=== PATIENT | female | born 1960 | race Caucasian/White ===

== ENCOUNTER 2016-08-07 18:35 | Inpatient (IN) | payer OTHER ==
[~2016-08-07] VITALS: Ht 152.4 cm; Wt 71.0 kg
[~2016-08-07 18:35] MED LIST: OLME1TAB25 PO
[2016-08-07 20:00] VITALS: BP 155/75; PULSE 76; RESP 20
[2016-08-07 20:18] VITALS: Ht 152.4 cm; Wt 71.0 kg
[2016-08-07] MEDS ORDERED: TAMS0.4C2 PO (20:58)
[2016-08-07] MEDS ORDERED: LEVO25TA53 PO (20:58)
[2016-08-07] MEDS ORDERED: PROG100C5 PO (20:58)
[2016-08-07] MEDS ORDERED: ESTRIOL PO (20:58)
[2016-08-07] MEDS ORDERED: LOSA50TA6 PO (20:58)
[2016-08-07] MEDS ORDERED: HYDR-3025 PO (20:58)
[2016-08-07] MEDS ORDERED: HYDROmorphONE 1 MG/ML SYG IV PRN (21:30)
[2016-08-07] MEDS ORDERED: DEXTROSE 5%-0.45% NACL 1,000 ML IV SCH (21:30)
[2016-08-07] MEDS ORDERED: BISACODYL (EC) 5 MG TAB PO PRN (21:30)
[2016-08-07 21:40] LABS: BASOPHILS % 0.5 % (0.0-2.0); EOSINOPHILS # 0.2 10^3/ul (0.0-0.5); HEMATOCRIT 39.6 % (37.0-47.0); HEMOGLOBIN 13.3 g/dl (12.0-16.0); LYMPHOCYTES # 2.5 10^3/ul (0.8-2.9); LYMPHOCYTES % 31.7 % (15.0-51.0); MEAN CORPUSCULAR HEMOGLOBIN 28.9 pg (29.0-33.0); MEAN CORPUSCULAR HGB CONC 33.7 g/dl (32.0-37.0); MEAN PLATELET VOLUME 8.2 fl (7.4-10.4); MONOCYTE # 0.5 10^3/ul (0.3-0.9); MONOCYTES % 5.8 % (0.0-11.0); NEUTROPHIL # 4.8 10^3/ul (1.6-7.5); PLATELET COUNT 265 10^3/UL (140-440); RED CELL DISTRIBUTION WIDTH 13.3 % (11.5-14.5)
[2016-08-07 21:42] LABS: CONDITION 1
[2016-08-07 21:44] LABS: POTASSIUM 4.6 mmol/L (3.5-5.1)
[2016-08-07 21:46] LABS: INR 0.88; PARTIAL THROMBOPLASTIN TIME 27.8 Sec (25.0-35.0); PROTIME 11.9 Sec (12.2-14.2); PT RATIO 0.9
[2016-08-07 21:47] LABS: CREATININE 0.73 mg/dl (0.44-1.00)
[2016-08-07 21:48] LABS: CALCIUM 9.1 mg/dl (8.4-10.2)
[2016-08-07] MEDS: DEXTROSE 5%-0.9% NACL 1,000 ML IV SCH (22:33)
[2016-08-07 23:20] VITALS: BP 145/68; PULSE 75; RESP 16
--- NOTE | 2016-08-07 23:28 | RADRPT ---
PROCEDURE: XR Chest. CLINICAL INDICATION: Preoperative. TECHNIQUE: Single frontal view. COMPARISON: None. FINDINGS: The lungs are clear. The heart size is normal. There is no pleural effusion. There is no pneumothorax. IMPRESSION: 1. Normal chest radiograph. RPTAT: QQ .Karthikeyan Dominguez MD, Date Time Electronically viewed and signed by .Karthikeyan Dominguez MD, on 08/07/2016 23:28 .R/
--- NOTE | 2016-08-07 23:29 | RADRPT ---
PROCEDURE: XR Abdomen. CLINICAL INDICATION: Abdomen pain. Renal calculus. TECHNIQUE: AP supine abdomen x-ray. COMPARISON: None. FINDINGS: The bowel gas pattern is normal with no evidence of obstruction. Surgical clips are present in the right upper quadrant of the abdomen. There are no abnormal calcifications overlying the urinary tracts. There are degenerative changes of the spine. IMPRESSION: 1. Prior right upper quadrant abdomen surgery. 2. Degenerative changes of the spine. 3. Otherwise unremarkable study. RPTAT: QQ .Karthikeyan Dominguez MD, MD Date Time Electronically viewed and signed by .Karthikeyan Dominguez MD, MD on 08/07/2016 23:29 .R/
[2016-08-08] VITALS (14 sets, daily range): BP systolic 111–156; BP diastolic 59–81; PULSE 62–88; RESP 10–20
--- NOTE | 2016-08-08 05:28 | HP ---
DATE OF ADMISSION: 08/07/2016 CHIEF COMPLAINT: Right flank pain with painful hematuria, nausea, and vomiting. HISTORY OF PRESENT ILLNESS: This is a 56-year-old female whom I saw on 07/28/2016, referred to me Alexia De Leon complaining off 3 days history of right flank pain associated with nausea, vomiting, and painful hematuria. Since then, she has been having the pain on and off. She did have an ultra sound by Dr. De Leon, and that showed right renal stone with right hydronephrosis. The patient denies a ny prior history of kidney stones. She does have a history of nocturia 2 to 3 times. During the da y, she voids every 4 to 5 hours. There is no history of dysuria. She did not have any constant urg e to urinate, and she does feel dizzy sometimes. The patient then underwent a KUB which showed a qu estion of a stone in the right ureter about 5 mm in size. The patient was given Flomax, pain medica tion, and was hope to be able to pass the stone; however, since that time, the patient has not been able to pass the stone, and she continued to have pain on and off. PAST MEDICAL HISTORY AND PAST SURGICAL HISTORY: The patient is a 1, para 1. She had 1 C-s ection. 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 She also has had a history of cholecystectomy, lapa roscopic 2 years ago. There is no history of other operations. Also, she does have a history of hy pertension and has been taking medication for it. She denies any heart or lung disease. No history of tuberculosis. No gastrointestinal diseases. ALLERGIES: NO KNOWN DRUG ALLERGIES. SOCIAL HISTORY: She does not smoke, does not drink any alcohol except occasionally and very small a mount. FAMILY HISTORY: Her mother of cancer of the stomach at age 55. Her father of heart attac k at age 65. PHYSICAL EXAMINATION: GENERAL: Revealed a well-developed female. She weighs about 71 kilograms. She is 60 inches tall. VITAL SIGNS: Her temperature is 98.1, pulse is 76, respiration 20, blood pressure 155/75. HEAD AND NECK: Unremarkable. HEART: Regular. LUNGS: Clear. ABDOMEN: She does have right flank tenderness and scar in the abdomen from prior surgery. EXTREMITIES: Reveal no edema, no varicose veins. LABORATORY DATA: Pending. IMPRESSION: Right renal stone and right ureteral stone. PLAN: To do a KUB and also strain her urine and also start her on IV, put her on pain medications, and we had scheduled her for 7:30 in the morning to undergo a cystoscopy, right ureteroscopy, laser lithotripsy, and insertion of a JJ stent. I have explained all these to her, and at the time of the visit, when she came in and saw me in the office, when she was with her as well, and I expl ained to both of them all the possibilities of the treatment. They understood, and from 07/28/2016 up to now, she has been having pain on and off. Finally she came into the hospital to have the ston e removed, and she is agreeable to have the procedure. Dictated By: MALIK WEBB/WILFREDO Conf#: [id number] DID#: [id number]
[2016-08-08] MEDS: PANTOPRAZOLE 40 MG INJ IV SCH (05:49)
[2016-08-08] MEDS ORDERED: EPHEDrine SULFATE 50 MG/5 ML SYG ONE (07:00)
[2016-08-08] MEDS ORDERED: PROPOFOL 20 ML ONE (07:35)
[2016-08-08] MEDS ORDERED: ROCURONIUM 50 MG INJ ONE (07:35)
[2016-08-08] MEDS ORDERED: MIDAZOLAM 1 MG/ML 2 ML INJ ONE (07:36)
[2016-08-08] MEDS ORDERED: FENTAnyl 50 MCG/ML VIAL ONE (07:36)
[2016-08-08] MEDS ORDERED: CEFAZOLIN 1 GM INJ ONE (07:48)
[2016-08-08] MEDS ORDERED: PHENYLephrine (100 MCG/ML) 5ML SYG ONE ×2 (07:51→08:21)
[2016-08-08] MEDS ORDERED: ONDANSETRON 4 MG INJ ONE (07:53)
[2016-08-08] MEDS ORDERED: DEXAMETHASONE 4 MG/ML 1 ML INJ ONE (07:53)
[2016-08-08] MEDS ORDERED: GLYCOPYRROLATE 0.4 MG INJ ONE (08:58)
[2016-08-08] MEDS ORDERED: NEOSTIGMINE 3 MG/3 ML SYRINGE ONE (08:58)
[2016-08-08] MEDS: ONDANSETRON 4 MG INJ IV PRN ×2 (09:27→14:52)
[2016-08-08] MEDS ORDERED: HYDROCODONE/APAP (5/325) TAB PO PRN (09:30)
[2016-08-08] MEDS ORDERED: hydrALAzine 20 MG INJ IV PRN (09:30)
[2016-08-08] MEDS ORDERED: HYDROmorphONE (0.2 MG/ML) 10ML SYG IV PRN ×2 (09:30)
[2016-08-08] MEDS ORDERED: MEPERIDINE 25 MG INJ IV PRN (09:30)
[2016-08-08] MEDS: DEXTROSE 5%-0.9% NACL 1,000 ML IV SCH ×2 (11:48→22:01)
--- NOTE | 2016-08-08 12:22 | RADRPT ---
PROCEDURE: XR Chest 1 View. CLINICAL INDICATION: Abnormal breath sounds, preop. TECHNIQUE: AP view of the chest were obtained. COMPARISON: August 07, 2016 FINDINGS: The cardiomediastinal silhouette is within normal limits. Lungs are hypoinflated. Linear atelectasi s is identified in the lingula. No consolidations are identified. No pneumothorax is seen. Osseous structures are intact. IMPRESSION: Hypoinflated lungs. Linear atelectasis in the lingula. RPTAT: AA .Chad Carpenter MD, MD Date Time Electronically viewed and signed by .Chad Carpenter MD, on 08/08/2016 12:21 .P/
--- NOTE | 2016-08-08 12:22 | RADRPT ---
PROCEDURE: X-ray fluoroscopy guidance CLINICAL INDICATION: Flank pain, cystoscopy and right ureteral stent placement. Fluoroscopic tobin morgan. TECHNIQUE: Fluoroscopic guidance was utilized for an intraoperative procedure. COMPARISON: None available FINDINGS: Fluoroscopic guidance was utilized for and intraoperative procedure. 80 seconds of fluoroscopy time was utilized for the procedure. 21 x-ray images were obtained during the procedure in progress. IMPRESSION: X-ray fluoroscopic guidance utilized for intraoperative procedure. Please see procedure note for details. RPTAT: AA .Chad Carpenter MD, MD Date Time Electronically viewed and signed by .Chad Carpenter MD, MD on 08/08/2016 12:21 .P/
--- NOTE | 2016-08-08 12:28 | OPR ---
DATE OF OPERATION: 08/08/2016 PREOPERATIVE DIAGNOSIS: Right ureteral stone with hydronephrosis. POSTOPERATIVE DIAGNOSIS: Right ureteral stone with hydronephrosis. PROCEDURE PERFORMED: Cystoscopy, right ureteroscopy, laser lithotripsy and insertion of right urete ral JJ stent. TECHNIQUE: The patient was brought to the operating room. Time out was done. The patient was iden tified by her name, date, the procedure and the side of the procedure. The patient was then g iven general endotracheal anesthesia, positioned in the lithotomy position. The genital area was pr epped and draped in the usual sterile manner. A #21 Ethiopian cystoscope sheath was introduced into th e bladder, and the bladder was inspected. 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 The right ureteral orifice was identified and then cannulated with a 5-Ethiopian open-ended urete ral catheter, and then a Glidewire was passed through the right ureteral orifice all the way up to t he kidney under fluoroscopy. Then, I did remove the open-ended and reintroduced it through the seco nd working channel and then passed a second Glidewire all the way up to the kidney as well. Then, t he scope was removed, and the two Glidewires were kept in place. One Glidewire was used as a safety wire. The other wire was used to advance the ureteroscope, the long rigid ureteroscope, on it. The ureter was very tight, and it looks like it was affected also by the radiation that she had to her p [place] 20 years ago; however, I was able to advance the scope up to the level of the stone, and there I did visualize the stone and used the holmium laser to break it. The 200 micron laser fiber was us ed. The stone was broken into pieces, and I basketed them. I had to use the laser more than once t o break the stone further, and once I cleared the ureter from all the stones, I was able to advance my scope all the way up to the proximal part of the ureter and the whole ureter was free of stones. At that moment, the ureteroscope was removed, and the cystoscope was reintroduced, and on the safet y wire, I inserted a 6-Ethiopian x 22 cm long JJ stent, had its proximal end curling into the kidney an d the distal end curling into the bladder. The distal end was attached to a string that was taped t o her right groin, so the patient would come into the office in about 4 days or 5 days to have the s tent removed without needing to undergo a cystoscopy. The patient tolerated the procedure well and was transferred to recovery room in stable and satisfactory condition. Dictated By: MALIK WEBB/WILFREDO Conf#: [id number] DID#: [id number]
--- NOTE | 2016-08-08 13:32 | PDOCDIS ---
Discharge Instructions CONDITION Patient Condition: Good HOME CARE INSTRUCTIONS: Special Diet: NPO ACTIVITY: Activity Restrictions: Slowly Increase Activity FOLLOW UP/APPOINTMENTS Appointments f/u song and dr cyr 1 wk JULIETA MARTINEZ MD Aug 08, 2016 13:32
[2016-08-08] MEDS ORDERED: HYDR-3498 PO (13:33)
--- NOTE | 2016-08-08 14:45 | QN ---
Documentation Comment hp done JULIETA MARTINEZ MD Aug 08, 2016 14:45
[2016-08-08] MEDS: ACETAMINOPHEN 325 MG TAB PO PRN ×2 (14:47→22:01)
--- NOTE | 2016-08-08 16:18 | HP ---
DATE OF ADMISSION: 08/07/2016 HISTORY OF PRESENT ILLNESS: The patient is a 56-year-old female who has a history of kidney stone, was seen by Dr. Amy De Leon, stented, but patient still has a kidney stone. Patient now presents to [facility] with flank pain. Denies any hematuria and underwent removal of kidney stone by Dr. Aston montalvo. Patient was seen postop. Patient denies any nausea, vomiting at this point. PAST MEDICAL HISTORY: Positive for hypertension and hypothyroidism. ALLERGY HISTORY: NEGATIVE. FAMILY HISTORY: Negative. SOCIAL HISTORY: Negative. MEDICATION HISTORY: At home: 1. Vicodin. 2. Levothyroxine. 3. Losartan. 4. Progesterone. 5. Flomax. REVIEW OF SYSTEMS: HEENT: Unremarkable. RESPIRATORY: Unremarkable. CARDIOVASCULAR: Unremarkable. ABDOMEN: Unremarkable. EXTREMITIES: Unremarkable. GENITOURINARY: Unremarkable. MUSCULOSKELETAL: As mentioned above. No hematuria, dysuria, flank pain positive. ABDOMEN: Unremarkable. PHYSICAL EXAMINATION: GENERAL: The patient is awake, alert. VITAL SIGNS: Stable. HEAD: Atraumatic, normocephalic. Pupils equal, reactive to light. NECK: Supple. No JVD. LUNGS: Clear. CARDIOVASCULAR: S1, S2 normal. ABDOMEN: Soft, nontender. Bowel sounds present. No palpable mass or hepatosplenomegaly. No guard ing, rebound tenderness. EXTREMITIES: There is no cyanosis, clubbing, or edema. CENTRAL NERVOUS SYSTEM: The patient is awake, alert, no focal deficit. LABORATORY DATA: Hematocrit 39.6. The patient has a x-ray shows prior right upper quadrant abdomi nal surgery, DJD of the spine. Cystogram was done. IMPRESSION: 1. Right renal stone. 2. The patient had a stone removal by Dr. Whipple. 3. Hypertension. 4. History of hypothyroidism. PLAN: To continue current treatment. Follow recommendations from Dr. Whipple. The patient is muriel g to be discharged in stable condition. Dictated By: JULIETA MARTINEZ MD BS/NTS Conf#: [id number] DID#: [id number]
[2016-08-09] MEDS: PANTOPRAZOLE 40 MG INJ IV SCH (06:25)
[2016-08-09 07:50] VITALS: BP 135/69; RESP 20
--- NOTE | 2016-08-09 09:25 | RADRPT ---
Vent Rate: 67 bpm RR Interval: 0 msec MS Interval: 166 msec QRS Duration: 90 msec QT Interval: 408 msec QTC Interval: 431 msec P-R-T [place]: 17 - 19 - 20 degrees Normal sinus rhythm Normal ECG Electronically Signed By: Chinedu Faria [id number]
--- NOTE | 2016-08-09 12:23 | PN ---
DATE: 08/09/2016 SUBJECTIVE: Nausea, headache and flank pain. The patient underwent a right ureteroscopy, laser lit hotripsy and removal of right ureteral stone yesterday and insertion of a JJ stent. Initially she w as supposed to go home, but it appears that when she took the [place] she was feeling bad. She was flowers ving headache and feeling sick and the patient also was having abdominal pain; therefore, she was ke pt overnight for observation to make sure that she is better and this morning she feels better. She still, however, has some headache, occipital kind of headache and that the abdomen is soft. She is urinating and the urine initially was blood-tinged and gradually is clearing. PHYSICAL EXAMINATION: VITAL SIGNS: Today show a temperature of 97.6, pulse is 87, respiration 20, blood pressure 135/69. ABDOMEN: Soft. There is no abdominal mass palpable. There is mild tenderness in the right lower q uadrant. IMPRESSION: Status post ureteroscopy, laser lithotripsy and insertion of a JJ stent. The patient s till has some headache and she thinks that her symptoms were after she took the [place]. Therefore, t he recommendation is that she does take Motrin or ibuprofen for the pain and avoid taking [place] and she is to take the antibiotic. I will see her in the office to remove her stent next week Sunday or Sunday. Dictated By: MALIK WEBB/WILFREDO Conf#: [id number] DID#: [id number]
== END 2016-08-09 10:25 | disposition home or self-care (01) | DRG 669 ==
LOC: MS2 19:43
PROVIDERS: ADMIT Family Medicine; ATTEND Internal Medicine Nephrology
PROC: 0T768DZ Dilation of Right Ureter with Intraluminal Device, Via Natural or Artificial Opening Endoscopic (ICD-10-PCS; 2016-08-08)
PROC: 0TC68ZZ Extirpation of Matter from Right Ureter, Via Natural or Artificial Opening Endoscopic (ICD-10-PCS; principal; 2016-08-08 07:30)
DX: N13.2 Hydronephrosis with renal and ureteral calculous obstruction (principal); I10 Essential (primary) hypertension; E03.9 Hypothyroidism, unspecified
CPT/HCPCS: 71010; 74000; 74430; 80048; 85025; 85610; 85730; 87086; 93005; C2617; C9113; J0360; J0690; J1100; J1170; J2175; J2250; J2370; J2405; J2710; J3010; J7042